=== PATIENT | female | born 1995 | race Caucasian/White ===

== ENCOUNTER 2017-02-10 11:37 | Emergency (ER) | payer MEDICAID ==
[~2017-02-10] VITALS: Ht 160 cm; Wt 59.0 kg
[~2017-02-10 11:37] MED LIST: KEFLEX 250MG.250 MG PO; TOBREX OPTH SOLU5 ML OP
--- NOTE | 2017-02-10 12:08 | [facility] Report ---
History of Present Issue Date/Time Seen by Provider 02/10/17 1202 Visit Reason Pt arrived:Walked Presenting Problem:Patient states she believes she has a stye in her left eye Location if Accident: Onset of symptoms date/time:02/07/17 or onset unknown for: Have you (or family members/close friends) recently traveled outside the [place]? N If Yes, where/when: Have you had exposure to infectious disease within the past month? TB? Other? Specify: Here w/ mother and infant son c/o "I think I have a stye on my left eye". First noticed mild redness last night and woke up w/ "white swelling" upper eyelid. Tender but denies pain. Worse w/ blinking. Mom had stye in Nov, redness in cheek and fevers so needed antibiotic. Not sure if she needs antibiotic. Denies any redness, swelling, fever, malaise, "just this tender white spot". Source patient Exam Limitations no limitations ALLERGIES Coded Allergies: No Known Allergies (07/27/16) Home Medications Active Scripts TOBRAMYCIN (Tobrex Opth Solution; 5ML) 1 DROP OP Q4H #1 BOT Prov: 07/27/16 History Medical History General Angina: No HI: No Hypertension? No Hyperlipidemia? No COPD? No Asthma? No CVA? No Seizures? No Diabetes? No GB Disease: No MRSA? No TB? No Cancer? No Immunization HX DT/Tetanus < 1 YR AGO Surgical Hx Previous Surgery?N Social History Smoking Hx Smoker: Never Smoker Tobacco: No Alcohol Alcohol: No Review of Systems All Other Systems Reviewed and Negative Constitutional denies fever, denies malaise Eyes denies drainage, denies decreased acuity, denies foreign body sensation, denies pain, denies photophobia ENT denies: ear pain. Skin denies change in color Psychiatric/Neurological denies headache Physical Exam Vital Signs Vital Signs Date Time Temp Pulse Resp B/P Pulse O2 O2 Flow FiO2 Ox Delivery Rate 02/10 1213 98.2 84 16 132/89 98 02/10 1159 84 16 132/89 98 02/10 1141 84 16 132/89 98 General Appearance no apparent distress Eye Exam - left eye eyelid inflammation (upper, inner canthus, stye,2mm), left eye other (no sign infection x/ stye), bilateral eye PERRL, bilateral eye EOMI Ear, Nose, Throat normal ENT inspection Neck non-tender, supple Respiratory Status No: respiratory distress. Cardiovascular no peripheral edema Neurologic alert Skin normal color, warm/dry Medical Decision Making LABS/Meds/Orders Pt receiving controlled substance in ED? No Departure Departure Time of Disposition 1206 Disposition DC Home or Self Care(routine) Clinical Impression Primary Impression: Hordeolum external Qualifiers: Laterality: left Eyelid: upper Qualified Code: H00.014 - Hordeolum externum left upper eyelid Condition STABLE Referrals Hoda Garcia APRN (Family) Follow up immediately for new or worsening symptoms OR no noticeable improvement over the next 48-72 hours. Patient Instructions DI for Hordeolum Additional Instructions Hordeolum = medical term for stye warm moist compresses 3-4 times a day x15-20 minutes each time wash eye w/ baby shampoo twice a day Monitor closely and seek treatment for new or worsening symptoms as we discussed. Discharge Counseling Counseled pt/family regarding diagnosis, medications/RX, home care, follow up needs at 1221
[2017-02-10 12:13] VITALS: BP 132/89
== END 2017-02-10 12:15 | disposition home or self-care (01) ==
LOC: ER 11:37 → UTC 11:48 → ER 11:48 → UTC 12:15
DX: H00.014 Hordeolum externum left upper eyelid (principal)